=== PATIENT | male | born 1950 | race Caucasian/White ===

== ENCOUNTER 2016-09-16 09:57 | Emergency (ER) | payer OTHER ==
--- NOTE | 2016-09-16 10:33 | ED ORDER SUMMARY ---
..... Patient: SATHISH LOMBARDI OrderSheet [facility] VisitID: [id number] [place] [address] 66y, M Registration Date/Time: 09/16/2016 ORDER SHEET Weight: 102.0 kg (stated) Allergies: Penicillins GENERAL ORDERS: Dress Wounds (silvadine) (xeroform) (10:28 09/16/2016 Jon Zarate) (10:35 Elle R.NGadiel) MEDICATION ORDERS: Silvadene Cream Topical (Cream 1 %) 1 application (NOW) (10:59 09/16/2016 Elle Travis written order Jon Zarate) (Ack 11:00 Elle Dotson.Althea) (11:01 Elle Dotson.Callum.) see above IV FLUIDS: ORDER SHEET NOTES: [Electronically signed by Nani Devine R.N. (11:03 09/16/2016)] [Electronically signed by Abe Rosales Dr. (07:28 09/18/2016)] [Electronically locked/signed by Nani Devine R.N. (11:03 09/16/2016)]
--- NOTE | 2016-09-16 10:33 | ED ORDER SUMMARY ---
..... Patient: SATHISH LOMBARDI OrderSheet [facility] VisitID: [id number] [place] [address] 66y, M Registration Date/Time: 09/16/2016 ORDER SHEET Weight: 102.0 kg (stated) Allergies: Penicillins GENERAL ORDERS: Dress Wounds (silvadine) (xeroform) (10:28 09/16/2016 Jon Zarate) (10:35 Elle R.NGadiel) MEDICATION ORDERS: Silvadene Cream Topical (Cream 1 %) 1 application (NOW) (10:59 09/16/2016 Elle Travis written order Jon Zarate) (Ack 11:00 Elle Dotson.Althea) (11:01 Elle Dotson.Callum.) see above IV FLUIDS: ORDER SHEET NOTES: [Electronically signed by Nani Devine R.N. (11:03 09/16/2016)] [Electronically signed by Abe Rosales Dr. (07:28 09/18/2016)] [Electronically locked/signed by Nani Devine R.N. (11:03 09/16/2016)]
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
--- NOTE | 2016-09-18 07:28 | ED MED RECONCILIATION SUMMARY ---
Patient: SATHISH LOMBARDI Medication Reconciliation Report [facility] VisitID: [id number] [place] [address] 66y, M Registration Date/Time: 09/16/2016 Weight: 102.0 kg Height/Length: 69 in. BMI: 33.2 ALLERGIES: Penicillins The patient's Home Medications are listed below: CONTINUE TAKING THE FOLLOWING MEDICATIONS: LamoTRIgine Oral (100 mg), bid Lipostatin Warfarin Sodium Oral The source(s) of the original Home Medication information: patient The following Medications were given to the patient in the Emergency Department: SILVADENE CREAM [TOPICAL] Topical 1 application, administered: 09/16/2016 10:46:00 AM The following Medications were prescribed to the patient: Acetaminophen (available over the counter): take according to label instructions. -- Abe Rosales Dr. Silvadene cream 1% : apply to affected area twice daily for 1 week. Dispense one thousand (1000) grams. No refill. Substitution is permissible -- Abe Rosales Dr.
--- NOTE | 2016-09-18 07:28 | ED MAR SUMMARY ---
..... Medication Administration Record [facility] [address] [place] [address] Patient: SATHISH LOMBARDI Visit ID: [id number] 66y, M Weight: 102.0 kg Height/Length: 69 in BMI: 33.2 ALLERGIES: Penicillins Given 10:46 09/16/2016 Nani Devine R.N. Medication Administered: SILVADENE CREAM [TOPICAL] (SILVER SULFADIAZINE), Dose: 1 application Cream Topical. Medication Ordered: Silvadene Cream Topical (Cream 1 %) 1 application (NOW).
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
--- NOTE | 2016-09-18 07:28 | ED MAR SUMMARY ---
..... Medication Administration Record [facility] [address] [place] [address] Patient: SATHISH LOMBARDI Visit ID: [id number] 66y, M Weight: 102.0 kg Height/Length: 69 in BMI: 33.2 ALLERGIES: Penicillins Given 10:46 09/16/2016 Nani Devine R.N. Medication Administered: SILVADENE CREAM [TOPICAL] (SILVER SULFADIAZINE), Dose: 1 application Cream Topical. Medication Ordered: Silvadene Cream Topical (Cream 1 %) 1 application (NOW).
--- NOTE | 2016-09-18 07:28 | ED MED RECONCILIATION SUMMARY ---
Patient: SATHISH LOMBARDI Medication Reconciliation Report [facility] VisitID: [id number] [place] [address] 66y, M Registration Date/Time: 09/16/2016 Weight: 102.0 kg Height/Length: 69 in. BMI: 33.2 ALLERGIES: Penicillins The patient's Home Medications are listed below: CONTINUE TAKING THE FOLLOWING MEDICATIONS: LamoTRIgine Oral (100 mg), bid Lipostatin Warfarin Sodium Oral The source(s) of the original Home Medication information: patient The following Medications were given to the patient in the Emergency Department: SILVADENE CREAM [TOPICAL] Topical 1 application, administered: 09/16/2016 10:46:00 AM The following Medications were prescribed to the patient: Acetaminophen (available over the counter): take according to label instructions. -- Abe Rosales Dr. Silvadene cream 1% : apply to affected area twice daily for 1 week. Dispense one thousand (1000) grams. No refill. Substitution is permissible -- Abe Rosales Dr.
== END 2016-09-16 10:50 | disposition home or self-care (01) ==
LOC: ED SRH 09:57
DX: T24.201A Burn of second degree of unspecified site of right lower limb, except ankle and foot, initial encounter (principal); T31.0 Burns involving less than 10% of body surface; X08.8XXA Exposure to other specified smoke, fire and flames, initial encounter; Y93.89 Activity, other specified; Y92.89 Other specified places as the place of occurrence of the external cause; Y99.0 Civilian activity done for income or pay; I10 Essential (primary) hypertension; Z79.01 Long term (current) use of anticoagulants; Z79.899 Other long term (current) drug therapy; Z87.891 Personal history of nicotine dependence